=== PATIENT | male | born 1980 | race Caucasian/White ===

== ENCOUNTER 2016-09-19 14:01 | Emergency (ER) | payer MEDICAID ==
[2016-09-19 14:09] VITALS: BP 127/82
== END 2016-09-19 17:41 | disposition home or self-care (01) ==
LOC: ED 14:01
DX: M79.674 Pain in right toe(s) (principal); I10 Essential (primary) hypertension; E11.9 Type 2 diabetes mellitus without complications

== ENCOUNTER 2017-05-11 13:54 | Emergency (ER) | payer MEDICAID ==
[~2017-05-11] VITALS: Ht 175.3 cm; Wt 137.0 kg
[2017-05-11 14:14] VITALS: Ht 175.3 cm; Wt 137.0 kg
[2017-05-11 16:20] LABS: UA SPECIFIC GRAVITY 1.025 (1.005-1.035); microscopic required? YES; urine erythrocyte 3+ (NEGATIVE)
[2017-05-11 17:25] VITALS: BP 150/101
== END 2017-05-11 17:26 | disposition home or self-care (01) ==
LOC: ED 13:54
PROVIDERS: Emergency Medicine
DX: N39.0 Urinary tract infection, site not specified (principal); E11.65 Type 2 diabetes mellitus with hyperglycemia; E66.9 Obesity, unspecified; I10 Essential (primary) hypertension; F17.210 Nicotine dependence, cigarettes, uncomplicated; M10.9 Gout, unspecified; E78.00 Pure hypercholesterolemia, unspecified; Z71.6 Tobacco abuse counseling
CPT/HCPCS: 82962; 99406

== ENCOUNTER 2018-04-06 13:30 | Emergency (ER) | payer MEDICAID ==
[2018-04-06 13:51] VITALS: Ht 177.8 cm
[2018-04-06 16:20] LABS: PLATELET COUNT 292 x10^3mcL (130-400); RED CELL DISTRIBUTION WIDTH 13.6 % (11.5-14.5)
[2018-04-06 16:28] LABS: CALCIUM 9.3 mg/dL (8.5-10.1); CARBON DIOXIDE 26.6 mmol/L (21-32); CHLORIDE SERUM 104 mmol/L (98-107); CREATININE SERUM 1.1 mg/dL (0.7-1.3); GFR1 > 60 mL/min; GLUCOSE SERUM 129 mg/dL (74-106); POTASSIUM SERUM 3.7 mmol/L (3.5-5.1); SODIUM SERUM 137 mmol/L (136-145)
[2018-04-06 16:33] LABS: ALBUMIN 3.5 g/dL (3.4-5.0); ALKALINE PHOSPHATASE 56 U/L (46-116); ALT/SGPT 22 U/L (16-63); AST/SGOT 10 U/L (15-37); BILIRUBIN TOTAL 0.2 mg/dL (0.20-1.00); TOTAL PROTEIN, SERUM 7.7 g/dL (6.4-8.2)
[2018-04-06 16:56] LABS: BAND NEUTROPHIL 0 % (0-10); BASOPHIL 0 % (0-2); MONOCYTE 7 % (0-7); SEGMENTED NEUTROPHILS 65 % (37-75)
[2018-04-06 17:29] VITALS: BP 146/92
[2018-04-06 18:05] LABS: rbc morphology (normal/abnorm) ABNORMAL (NORMAL)
[2018-04-06 18:06] LABS: ERYTHROCYTE SED RATE 35 mm/hr (0-15)
== END 2018-04-06 17:29 | disposition home or self-care (01) ==
LOC: ED 13:30
PROVIDERS: Specialist
DX: M89.9 Disorder of bone, unspecified (principal); I10 Essential (primary) hypertension; E11.9 Type 2 diabetes mellitus without complications; E78.00 Pure hypercholesterolemia, unspecified; M10.032 Idiopathic gout, left wrist
CPT/HCPCS: Q0092

== ENCOUNTER 2018-09-26 22:19 | Emergency (ER) | payer MEDICAID ==
[~2018-09-26] VITALS: Ht 175.3 cm; Wt 142.4 kg
[2018-09-26 22:30] VITALS: Ht 175.3 cm; Wt 142.4 kg
[2018-09-26 23:03] LABS: BASOPHIL % 0.7 % (0-2); PLATELET COUNT 266 x10^3mcL (130-400); RED CELL DISTRIBUTION WIDTH 13.7 % (11.5-14.5)
[2018-09-26 23:18] LABS: CALCIUM 8.9 mg/dL (8.5-10.1); CARBON DIOXIDE 23.4 mmol/L (21-32); CHLORIDE SERUM 106 mmol/L (98-107); CREATININE SERUM 1.1 mg/dL (0.7-1.3); GFR1 > 60 mL/min; GLUCOSE SERUM 329 mg/dL (74-106); POTASSIUM SERUM 3.6 mmol/L (3.5-5.1); SODIUM SERUM 142 mmol/L (136-145)
[2018-09-26 23:24] LABS: ALKALINE PHOSPHATASE 51 U/L (46-116); ALT/SGPT 23 U/L (16-63); AST/SGOT 12 U/L (15-37); BILIRUBIN TOTAL 0.2 mg/dL (0.20-1.00)
[2018-09-26 23:26] LABS: ALBUMIN 3.3 g/dL (3.4-5.0)
[2018-09-27 00:52] VITALS: BP 159/90
== END 2018-09-27 00:52 | disposition home or self-care (01) ==
LOC: ED 22:19
PROVIDERS: Emergency Medicine
DX: G51.0 Bell's palsy (principal); I10 Essential (primary) hypertension; E11.9 Type 2 diabetes mellitus without complications; E66.01 Morbid (severe) obesity due to excess calories
CPT/HCPCS: 36415; 82962; J7512

== ENCOUNTER 2020-02-16 21:05 | Emergency (ER) | payer MEDICAID ==
[~2020-02-16] VITALS: Ht 177.8 cm; Wt 141.5 kg
[2020-02-16 21:13] VITALS: Ht 177.8 cm; Wt 141.5 kg
[2020-02-17 01:58] VITALS: BP 113/73
== END 2020-02-17 01:58 | disposition home or self-care (01) ==
LOC: ED 21:05
DX: R20.2 Paresthesia of skin (principal); E11.9 Type 2 diabetes mellitus without complications; I10 Essential (primary) hypertension; E78.00 Pure hypercholesterolemia, unspecified
CPT/HCPCS: 82962

== ENCOUNTER 2020-05-30 14:53 | Emergency (ER) | payer MEDICAID ==
[~2020-05-30] VITALS: Ht 175.3 cm; Wt 142.9 kg
[2020-05-30 15:05] VITALS: BP 117/87; Ht 175.3 cm; Wt 142.9 kg
== END 2020-05-30 16:29 | disposition home or self-care (01) ==
LOC: ED 14:53
DX: M25.462 Effusion, left knee (principal); R00.0 Tachycardia, unspecified; I10 Essential (primary) hypertension; E11.9 Type 2 diabetes mellitus without complications; E78.00 Pure hypercholesterolemia, unspecified; M10.9 Gout, unspecified; F17.210 Nicotine dependence, cigarettes, uncomplicated
CPT/HCPCS: 20552; 82962